=== PATIENT | female | born 1955 | race Caucasian/White ===

== ENCOUNTER → 2017-08-13 09:52 | Outpatient (CLI) | payer MEDICARE, MEDICAID, SELFPAY ==
--- NOTE | 2017-08-13 09:58 | XR_ITS ---
EXAM: XR lumbar spine min 4V HISTORY: ITS.REASON: LOW BACK PAIN ORDERING PHYSICIAN: Gabi Matos PATIENT AGE: 61 years COMPARISON: FINDINGS: Normal alignment. No fracture or dislocation. No lytic or blastic change. There is degenerative disc disease at L5-S1. IMPRESSION: Degenerative disc disease L5-S1
== END ==
PROVIDERS: PCP Nurse Practitioner Family; Visit Provider Nurse Practitioner Family
DX: M54.41 Lumbago with sciatica, right side (principal)
CPT/HCPCS: 72110

== ENCOUNTER → 2017-10-02 12:21 | Outpatient (CLI) | payer MEDICARE, MEDICAID, SELFPAY ==
--- NOTE | 2017-10-02 12:26 | US_ITS ---
US transvaginal HISTORY: Postmenopausal bleeding ITS.REASON: ABNORMAL UTERINE BLEEDING ORDERING PHYSICIAN: Gabi Matos PATIENT AGE: 61 years Comparison: None FINDINGS: UTERUS: The uterus measures 6 x 2.5 x 3.5 cm. Combined endometrial thickness is 3 mm. No uterine mass evident. The right ovary is difficult to determine the margins of with appears enlarged measuring approximately 5 x 2.5 cm with multiple small cysts measuring up to 17 mm. The left ovary is unremarkable at 18 mm. No cul-de-sac fluid evident. IMPRESSION: 1. Enlarged right ovary with small cysts. Consider 4-6 week follow-up to confirm stability in this postmenopausal patient 2. Unremarkable appearing uterus
== END ==
PROVIDERS: Family Provider Family Medicine; PCP Nurse Practitioner Family; Visit Provider Nurse Practitioner Family
DX: N93.9 Abnormal uterine and vaginal bleeding, unspecified (principal)
CPT/HCPCS: 76830

== ENCOUNTER → 2018-03-07 08:16 | Outpatient (CLI) | payer MEDICARE, MEDICAID, SELFPAY ==
--- NOTE | 2018-03-07 08:41 | MM_ITS ---
MM Dig screening mamm BI w/CAD ORDERING PHYSICIAN : Paxton Celis MD PATIENT AGE: 62 years GENDER: Female COMPARISON: January 2017, 2015. December 2014 also October 2013 and October 2009 INDICATION: ITS.REASON: SCREENING. No hormones. No new complaints. Noncontributory family history. TECHNIQUE: Standard CC and MLO images were obtained. R2 CAD reviewed. FINDINGS: Low-density breast bilaterally with generalized replacement. No dominant mass or suspicious mass. No suspicious calcifications or significant concern. There are some scattered small densities in the deep axillary tail of both breasts, right more so than left but these are stable and most likely reflect small intramammary lymph node features. No significant new density either breast. Bilateral follow-up in one year recommended. . Left breast but there is a small less than 5 mm round density labeled X at the deep axillary left breast. Again favor benign features such as a lymph node or possibly a small cyst since it is slightly more evident today. IMPRESSION: Left breast. Small 5 mm vaguely round density deep axillary breast most likely intramammary node, less likely cyst.. Benign mammogram appearance/feature on today's mammogram but is more evident than previous studies.- Therefore Suggest follow-up left mammogram 5-6 months to confirm stable Six-month follow-up adequate. On left to confirm stable . Right breast unchanged follow-up in one year. BI-RADS Category: 3 Probably Benign Finding Short Term Follow-up RECOMMENDED FOLLOW-UP: 6M 6 MONTH FOLLOW-UP (A letter has been sent to the patient regarding results of the study.)
== END ==
PROVIDERS: PCP Family Medicine; Visit Provider Family Medicine
DX: Z12.31 Encounter for screening mammogram for malignant neoplasm of breast (principal)
CPT/HCPCS: 77067

== ENCOUNTER → 2018-08-27 08:47 | Outpatient (POV) | payer MEDICARE, MEDICAID, SELFPAY | PROVIDERS: Visit Provider Dermatology | DX: Z00.00 Encounter for general adult medical examination without abnormal findings (principal) ==

== ENCOUNTER → 2018-09-26 12:58 | Outpatient (CLI) | payer MEDICARE, MEDICAID, SELFPAY ==
--- NOTE | 2018-09-26 13:45 | MM_ITS ---
MM Dig mamm DX unilat LT CAD Ordering Physician: Paxton Celis MD Patient Age: 62 years Female COMPARISON: March 07, 2018 and January 2017 Also December 2014, January 2016 INDICATION: Follow-up small area of nodularity lateral breast right quadrant left breast seen on March 07, 2018 TECHNIQUE: In addition to standard CC and MLO views, spot CC and MLO views were obtained in the upper outer quadrant left breast FINDINGS: . The small area of nodularity previously questioned on previous screening mammogram from March 07, 2018 is less evident and barely appreciable.. Only vague Low-density most likely intramammary node Not of concern and appear stable when compared back to 2016, 2015.. Patient may resume annual schedule. But otherwise minimal residual fibroglandular elements with fatty replacement. No new areas of concern. IMPRESSION: ...... No areas of significant concern. . Small vague low-density less than 5 mm area of density towards upper-outer quadrant left breast is less evident than 2018 mammogram.,, Barely appreciable today. Only vaguely seen and likely present on on old studies from 2016.- Most likely small intramammary node and can be followed . Recommend patient resume annual schedule, with bilateral mammogram /March 2019 suggested. BI-RADS Category: 2 Benign Finding(s) RECOMMENDED FOLLOW-UP: 6M 6 MONTH FOLLOW-UP Bilateral follow-up March 2019--to resume annual schedule A letter has been sent to the patient regarding results of the study.)
== END ==
PROVIDERS: PCP Family Medicine; Visit Provider Family Medicine
DX: R92.8 Other abnormal and inconclusive findings on diagnostic imaging of breast (principal)
CPT/HCPCS: 77065

== ENCOUNTER → 2018-11-19 08:55 | Outpatient (POV) | payer MEDICARE, MEDICAID, SELFPAY | PROVIDERS: Visit Provider Dermatology | DX: Z00.00 Encounter for general adult medical examination without abnormal findings (principal) ==

== ENCOUNTER → 2019-02-13 09:34 | Outpatient (CLI) | payer MEDICARE, MEDICAID, SELFPAY ==
--- NOTE | 2019-02-13 09:44 | XR_ITS ---
PROCEDURE: XR KUB CLINICAL INDICATION: RT SIDED ABD PAIN Right nephrolithiasis COMPARISON: ABDPELWO CT abdomen pelvis wo con from 12/07/2017 FINDINGS: There are multiple small punctate foci of increased density overlying the colon and may be related to ingested material. No obvious renal or ureteral calculi. Mild degenerative changes of the SI joints IMPRESSION: No acute findings. Dictated by: Surinder Valencia MD 02/13/2019 15:42 Electronically signed by Surinder Valencia MD in [facility] 02/13/2019 15:42
[2019-02-13 11:22] LABS: Basophils # 0.1 K/mm3 (0-0.2); Basophils % 1.1 % (0.1-2.0); Eosinophils # 0.1 K/mm3 (0.0-0.4); Eosinophils % 1.2 % (0.1-12.0); Hematocrit 40.3 % (37.0-47.0); Hemoglobin 12.5 g/dL (12.2-16.2); Lymphocytes # 1.7 K/mm3 (0.7-4.5); Lymphocytes % 40.2 % (10-50); Mean Corpuscular HGB Conc 31.1 g/dL (31.8-35.4); Mean Corpuscular Hemoglobin 30.5 pg (27.0-31.2); Mean Platelet Volume 8.6 fl (7.4-10.4); Monocytes # 0.3 K/mm3 (0.1-1.0); Monocytes % 6.5 % (1.7-9.3); Neutrophils # 2.2 K/mm3 (1.8-7.8); Platelet Count 276 K/mm3 (142-424); Red Blood Count 4.11 M/mm3 (4.20-5.40); Red Cell Distribution Width 13.3 % (11.5-17.5); White Blood Count 4.4 K/mm3 (4.8-10.8)
[2019-02-13 13:07] LABS: Alanine Aminotransferase 18 U/L (12-78); Albumin Level 3.8 gm/dL (3.4-5.0); Albumin/Globulin Ratio 1.3 (1.1-1.8); Alkaline Phosphatase 62 U/L (46-116); Amylase 32 U/L (25-115); Anion Gap 11.4 mEq/L (5-15); Aspartate Amino Transferase 15 U/L (15-37); Bilirubin,Total 0.6 mg/dL (0.2-1.0); Blood Urea Nitrogen 16 mg/dL (7-18); Calcium 9.6 mg/dL (8.5-10.1); Carbon Dioxide 31 mmol/L (21.0-32.0); Chloride 104 mmol/L (98-107); Creatinine,Serum 1.09 mg/dL (0.55-1.02); Estimated Glomerular Filt Rate 50 ml/min (>60); GFR (African American) 61 ML/MIN (>60); Gamma Glutamyl Transpeptidase 18 U/L (5-55); Globulin 2.9 gm/dl (1.3-3.2); Glucose 82 mg/dL (74-106); Lipase 94 u/L (73-393); Potassium 4.4 mmoL/L (3.5-5.1); Sodium 142 mmol/L (136-145); Total Protein,Serum 6.7 gm/dL (6.4-8.2)
== END ==
PROVIDERS: PCP Nurse Practitioner Family; Visit Provider Nurse Practitioner Family
DX: R10.9 Unspecified abdominal pain (principal); Z79.899 Other long term (current) drug therapy
CPT/HCPCS: 36415; 74018; 80053; 82150; 82977; 83690; 85025

== ENCOUNTER → 2019-02-21 08:08 | Outpatient (CLI) | payer MEDICARE, MEDICAID, SELFPAY ==
--- NOTE | 2019-02-21 08:11 | CT_ITS ---
PROCEDURE: CT ABDOMEN WO/W CON CLINICAL HISTORY: RT SIDED ABD PAIN Right upper quadrant pain the COMPARISON: ABDPELW/O CT ABD PELVIS W/O CONTRAST from 12/31/[address] abdomen pelvis wo con from 12/07/2017 TECHNIQUE: 75 mL Optiray 350 Pre and post enhanced images are obtained with 5 minutes delayed post enhanced images as well. Axial images obtained with sagittal and coronal reformats. All CT scans at the facility use one or more dose reduction, viz: automated exposure control, ma/kV adjustment per patient size (including targeted exams where dose is matched to indication, i.e. head), or iterative reconstruction technique. FINDINGS: There is a small hiatal hernia. There are postsurgical changes of the stomach. The liver shows a small linear area of decreased attenuation in the left hepatic lobe superiorly. This is probably not significantly changed and could be due to an area of scarring. This area measures approximately 1.8 by 0.9 cm. This appears stable compared to an older exam of 12/31/2014. The liver is otherwise unremarkable. The spleen, adrenal glands, gallbladder, and pancreas have an unremarkable appearance. There is mild haziness of the central mesenteric fat. This is nonspecific and not significantly changed. Knee No renal or ureteral calculi. The previously noted right ureteropelvic junction stone is no longer apparent. The distal ureters are not imaged on this exam as the pelvis was not performed. There is minimal ectasia the renal pelvicaliceal system bilaterally nonspecific. No intestinal obstruction or free air. No evidence of aortic aneurysm. There are mild degenerative changes in the lumbar spine. There is a small umbilical hernia containing fat. IMPRESSION: 1. Previously noted right ureteropelvic junction stone no longer apparent. 2. Hiatal hernia with postsurgical changes of the stomach as before. Dictated by: Surinder Valencia MD 02/21/2019 18:22 Electronically signed by Surinder Valencia MD in [facility] 02/22/2019 08:17
== END ==
PROVIDERS: PCP Nurse Practitioner Family; Visit Provider Nurse Practitioner Family
DX: R10.31 Right lower quadrant pain (principal)
CPT/HCPCS: 74170; Q9967

== ENCOUNTER → 2019-05-27 13:08 | Outpatient (CLI) | payer MEDICARE, MEDICAID, SELFPAY ==
--- NOTE | 2019-05-27 14:13 | MM_ITS ---
PROCEDURE: MM DIG SCREENING MAMM BI W/CAD CLINICAL INDICATION: SCREENING COMPARISON: D[facility]B DIG MAMM-SCREEN MACY W/CAD from 01/25/2017 [facility] MM Dig screening mamm BI w/CAD from 03/07/2018 DIG MAMM-DX UNI-LT from 09/26/2018 TECHNIQUE: Standard CC and MLO images and 3D Tomosynthesis was obtained. R2 CAD reviewed. FINDINGS: The breasts are of average density. Benign appearing nodules consistent with lymph nodes project over both pectoral muscles. There are 2 separate circumscribed benign appearing nodules in the right breast which are unchanged and felt to be benign one in the upper outer quadrant and one the inferior lateral quadrant. A new circumscribed nodule 3.7 x 2.5 millimeters appears to be present in the medial retroareolar right breast. This is probably benign. Six-month follow-up exam is recommended. There are no spiculated masses or suspicious clustered microcalcifications to suggest malignancy. IMPRESSION: BI-RAD Category: Right breast BI-RADS category 3 probably benign findings. Left breast BI-RADS category 2 benign. FOLLOW-UP: Six-month follow-up right breast and 1 year follow-up left breast. (A letter has been sent to the patient regarding results of the study.) Dictated by: Fracisco Whyte 05/27/2019 19:10 Electronically signed by Fracisco Whyte in [facility] 05/27/2019 19:10
== END ==
PROVIDERS: PCP Nurse Practitioner Family; Visit Provider Family Medicine
DX: Z12.31 Encounter for screening mammogram for malignant neoplasm of breast (principal)
CPT/HCPCS: 77063; 77067

== ENCOUNTER → 2019-08-21 10:07 | Outpatient (CLI) | payer MEDICARE, MEDICAID, SELFPAY ==
--- NOTE | 2019-08-21 10:15 | XR_ITS ---
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 The joint spaces are well-preserved. No significant degenerative/arthritic changes. No erosive changes evident. Other findings:No fracture or dislocation IMPRESSION: Hallux valgus with bunion formation Dictated by: Surinder Valencia MD 08/21/2019 11:30 Electronically signed by Surinder Valencia MD in [facility] 08/21/2019 11:30
== END ==
PROVIDERS: PCP Family Medicine; Visit Provider Nurse Practitioner Family
DX: M79.671 Pain in right foot (principal)
CPT/HCPCS: 73630

== ENCOUNTER → 2019-11-11 10:22 | Outpatient (CLI) | payer MEDICARE, MEDICAID, SELFPAY ==
--- NOTE | 2019-11-11 10:25 | MM_ITS ---
PROCEDURE: MM DIG MAMM DX UNILAT RT CAD Digital Breast Tomosynthesis Included CLINICAL INDICATION: 6 MTH F/U RT BREAST DENSITY COMPARISON: MG [facility]MSB DIG MAMM-SCREEN MACY from 12/31/2014 MG [facility] MM Dig screening mamm BI w/CAD from 03/07/2018 MG DIG MAMM-DX UNI-LT from 09/26/2018 MG MM DIG SCREENING MAMM BI W/CAD from 05/27/2019 TECHNIQUE: Standard CC and MLO images and 3D Tomosynthesis was obtained. R2 CAD reviewed. FINDINGS: There is average fibroglandular tissue. There is some nodularity involving the medial aspect of the right breast probably not significantly changed given difference in technique. The previously described 3.7 x 2.5 cm nodular opacity in the medial right breast is not as well demonstrated on today's exam. No malignant appearing mass or malignant-appearing microcalcification. Recommend resume screening mammogram May 2020 IMPRESSION: BI-RAD Category: 3 Probably Benign Finding Short Term Follow-up FOLLOW-UP: 6M 6Month Follow-up (A letter has been sent to the patient regarding results of the study.) Dictated b Surinder Valencia MD 11/14/2019 10:46 Surinder Valencia MD in [place] 11/14/2019 10:46
== END ==
PROVIDERS: PCP Family Medicine; Visit Provider Family Medicine
DX: R92.8 Other abnormal and inconclusive findings on diagnostic imaging of breast (principal); Z09 Encounter for follow-up examination after completed treatment for conditions other than malignant neoplasm
CPT/HCPCS: 77061; 77065; G0279

== ENCOUNTER → 2020-05-14 09:28 | Outpatient (CLI) | payer MEDICARE, MEDICAID, SELFPAY ==
--- NOTE | 2020-05-14 09:32 | MM_ITS ---
PROCEDURE: MM DIG SCREENING MAMM BI W/CAD Digital Breast Tomosynthesis Included CLINICAL INDICATION: SCREENING Personal or family history of breast cancer. COMPARISON: MG DIG MAMM-DX UNI-LT from 09/26/2018 MG MM DIG SCREENING MAMM BI W/CAD from 05/27/2019 MG MM DIG MAMM DX UNILAT RT CAD from 11/11/2019 TECHNIQUE: Standard CC and MLO images and 3D Tomosynthesis was obtained. R2 CAD reviewed. FINDINGS: Mild scattered fibroglandular densities are seen in both breast on a background of primarily fatty breast parenchyma. There is a stable small benign-appearing nodular density upper-outer quadrant right breast. There are stable small asymmetric glandular elements inner quadrant right breast. There is a benign-appearing calcification right breast. There is no suspicious lesion and no suspicious microcalcifications. IMPRESSION: Fibrofatty parenchyma with no suspicious lesions seen BI-RAD Category: 2 Benign Finding(s) FOLLOW-UP: 1YR 1 Year Follow-up (A letter has been sent to the patient regarding results of the study.) Dictated by: Dr. Paulo Lamb MD 05/18/2020 12:26 Dr. Paulo Lamb MD in [place] 05/18/2020 12:26
== END ==
PROVIDERS: PCP Family Medicine; Visit Provider Family Medicine
DX: Z12.31 Encounter for screening mammogram for malignant neoplasm of breast (principal)
CPT/HCPCS: 77063; 77067

== ENCOUNTER → 2020-12-20 11:53 | Outpatient (CLI) | payer MEDICARE, SELFPAY ==
--- NOTE | 2020-12-20 11:58 | XR_ITS ---
PROCEDURE: XR LUMBAR SPINE MIN 4V CLINICAL INDICATION: ACUTE LOW BACK PAIN, UNSPECIFIED BACK PAIN LATERALITY COMPARISON: CR [id number] XR lumbar spine min 4V from 08/13/2017 FINDINGS: Minimal lumbar curvature convex right. There is mild multilevel degenerative disc disease from L1-S1. Small anterior osteophytes are present. The degenerative disc disease is most pronounced at L4-5 and L5-S1. There is 3 mm anterolisthesis of L3 on L4. Mild facet arthritic changes L3 L4-5 and S1. Mild degenerative changes of the SI joints. Other findings:None. IMPRESSION: Degenerative changes, no acute finding Dictated by: Surinder Valencia MD 12/20/2020 13:03 Surinder Valencia MD in [place] 12/20/2020 13:03
== END ==
PROVIDERS: PCP Family Medicine; Visit Provider Nurse Practitioner Family
DX: M54.5 Low back pain (principal)
CPT/HCPCS: 72110

== ENCOUNTER → 2021-06-08 09:54 | Outpatient (CLI) | payer MEDICARE, SELFPAY ==
--- NOTE | 2021-06-08 09:57 | MM_ITS ---
PROCEDURE INFORMATION: Exam: MG Bilateral Screening 3D Mammography Exam date and time: 06/08/2021 9:57 AM Age: 65 years old Clinical indication: Screening mammogram TECHNIQUE: Imaging protocol: Bilateral Screening tomosynthesis and 2D mammography including computer-aided detection (CAD) when performed. COMPARISON: No relevant prior studies available. FINDINGS: MAMMOGRAPHY: Breast composition: There are scattered areas of fibroglandular density. Mass: Stable benign-appearing subcentimeter nodules are present in the bilateral breasts. No new or morphologically suspicious nodule has developed to suggest malignancy. Architectural distortion: No new or suspicious architectural distortion. Calcifications: No new or suspicious calcifications are present Asymmetric density: No new or suspicious asymmetric density is present Skin thickening: None. Axillary adenopathy: None. IMPRESSION: No mammographic evidence of malignancy. Recommend annual screening mammography unless otherwise clinically indicated. ASSESSMENT: BI-RADS category 2: Benign
== END ==
PROVIDERS: PCP Family Medicine; Visit Provider Family Medicine
DX: Z12.31 Encounter for screening mammogram for malignant neoplasm of breast (principal)
CPT/HCPCS: 77063; 77067

== ENCOUNTER → 2022-06-01 12:17 | Outpatient (CLI) | payer MEDICARE, SELFPAY | PROVIDERS: PCP Family Medicine; Visit Provider Nurse Practitioner Family | DX: I49.8 Other specified cardiac arrhythmias (principal) | CPT/HCPCS: 93225; 93226 ==

== ENCOUNTER → 2022-06-14 08:26 | Outpatient (CLI) | payer MEDICARE, SELFPAY ==
--- NOTE | 2022-06-14 08:32 | MM_ITS ---
PROCEDURE INFORMATION: Exam: MG Bilateral Screening 3D Mammography Exam date and time: 06/14/2022 8:45 AM Age: 66 years old Clinical indication: Screening examination TECHNIQUE: Imaging protocol: Bilateral Screening tomosynthesis and 2D mammography including computer-aided detection (CAD) when performed. COMPARISON: 1. MG MM DIG SCREENING MAMM BI W/CAD 06/08/2021 10:25 AM 2. MG MM DIG SCREENING MAMM BI W/CAD 05/14/2020 10:04 AM FINDINGS: MAMMOGRAPHY: Breast composition: There are scattered areas of fibroglandular density. Mass: None. Architectural distortion: None. Calcifications: No suspicious calcifications. Asymmetric density: None. Skin thickening: None. Axillary adenopathy: None. IMPRESSION: No mammographic evidence of malignancy. Annual screening is recommended unless otherwise clinically indicated. ASSESSMENT: BI-RADS Category 1: Negative
--- NOTE | 2022-06-14 08:34 | XR_ITS ---
FINAL REPORT TECHNIQUE: Bone densitometry calculations of the lumbar spine and right hip were obtained. CLINICAL HISTORY: screening FINDINGS: DEXA BONE DENSITY AXIAL SKELETON Using L1-4, the bone mineral density of the spine is 1.088 g/cm2, corresponding to T-score of 0.4. Using the right hip, the bone mineral density of the femoral neck is 0.749 g/cm2, corresponding to a T-score of -0.9. NOTE: T-score: Standard deviation compared with peak bone mass of young adult mean. *Following the recommendations of the International Society of Bone densitometry, classification of hip BMD is based on the lower of two T-scores; total hip or femoral neck. IMPRESSION: Normal bone mineral density of the lumbar spine and right hip. Reviewed, Interpreted and Dictated by Darius Villar III, MD Transcribed by Tanya Wiley Authenticated and [facility]
== END ==
PROVIDERS: PCP Nurse Practitioner Family; Visit Provider Nurse Practitioner Family
DX: Z12.31 Encounter for screening mammogram for malignant neoplasm of breast (principal); Z78.0 Asymptomatic menopausal state; M85.80 Other specified disorders of bone density and structure, unspecified site
CPT/HCPCS: 77063; 77067; 77080

== ENCOUNTER → 2023-01-03 07:16 | Outpatient (CLI) | payer MEDICARE, SELFPAY ==
--- NOTE | 2023-01-03 07:20 | US_ITS ---
FINAL REPORT TECHNIQUE: Sonographic images of the abdomen were obtained in all four quadrants. CLINICAL HISTORY: RUQ PAIN FINDINGS: LIVER: Homogeneous. No focal hepatic lesion or intrahepatic biliary dilatation. GALLBLADDER: No gallstones. 7 mm echogenic structure along the nondependent wall most consistent with a polyp. No pericholecystic fluid collection or gallbladder wall thickening. The common duct measures 4 mm. This is within normal limits for age. PANCREAS: Unremarkable. RIGHT KIDNEY: 9.2 cm. No hydronephrosis, mass or stone. LEFT KIDNEY: 10.7 cm. No hydronephrosis, mass or stone. SPLEEN: 9.5 cm. No focal splenic lesion. AORTA/IVC: No abdominal aortic aneurysm. Visualized IVC within normal limits. OTHER: No ascites. IMPRESSION: Gallbladder polyp. Given size of greater than 5 mm recommend 6-12-month follow-up. Reviewed, Interpreted and Dictated by Chrissy Camilo MD Transcribed by Vijay Payne Authenticated and [facility]
== END ==
LOC: RAD 07:16
PROVIDERS: PCP Nurse Practitioner Family; Visit Provider Nurse Practitioner Family
DX: R10.11 Right upper quadrant pain (principal); Z98.84 Bariatric surgery status
CPT/HCPCS: 76700

== ENCOUNTER 2023-07-30 09:04 | Outpatient (CLI) | payer MEDICARE, SELFPAY ==
--- NOTE | 2023-07-30 09:10 | MM_ITS ---
PROCEDURE INFORMATION: Exam: MG Bilateral Screening 3D Mammography Exam date and time: 07/30/2023 9:01 AM Age: 67 years old Clinical indication: Screening examination TECHNIQUE: Imaging protocol: Bilateral Screening tomosynthesis and 2D mammography including computer-aided detection (CAD) when performed. COMPARISON: 1. MG MM DIG SCREENING MAMM BI W/CAD 06/14/2022 8:45 AM 2. MG MM DIG SCREENING MAMM BI W/CAD 06/08/2021 10:25 AM FINDINGS: MAMMOGRAPHY: Breast composition: The breasts are almost entirely fatty. Mass: None. Architectural distortion: None. Calcifications: No suspicious calcifications. Asymmetric density: None. Skin thickening: None. Axillary adenopathy: None. IMPRESSION: No mammographic evidence of malignancy. Annual screening is recommended unless otherwise clinically indicated. ASSESSMENT: BI-RADS Category 1: Negative
--- NOTE | 2023-07-30 09:10 | XR_ITS ---
FINAL REPORT CLINICAL HISTORY: POST MENOPAUSAL COMPARISON: 06/14/2022 FINDINGS: Using L1-4, the bone mineral density of the spine is 1.139 g/cm2, corresponding to T-score of 0.8. Using the left hip, the bone mineral density of the femoral neck is 0.817 g/cm2, corresponding to a T-score of -0.3. Using the right hip, the bone mineral density of the femoral neck is 0.756 g/cm?, corresponding to a T-score of -0.8. NOTE: T-score: Standard deviation compared with peak bone mass of young adult mean. *Following the recommendations of the International Society of Bone densitometry, classification of hip BMD is based on the lower of two T-scores; total hip or femoral neck. IMPRESSION: Normal bone mineral density of the hips bilaterally and the lumbar spine, stable since the prior DEXA exam of 06/14/2022. Reviewed, Interpreted and Dictated by Pietro Dumont MD Transcribed by Shadia Mendoza Authenticated and [facility]
== END 2023-07-30 23:59 | disposition home or self-care (01) ==
LOC: RAD 09:04
PROVIDERS: PCP Nurse Practitioner; Visit Provider Nurse Practitioner
DX: Z12.31 Encounter for screening mammogram for malignant neoplasm of breast; Z13.820 Encounter for screening for osteoporosis; Z78.0 Asymptomatic menopausal state
CPT/HCPCS: 77063; 77067; 77080

== ENCOUNTER 2023-08-09 15:11 | Outpatient (CLI) | payer MEDICARE, SELFPAY ==
--- OUTSIDE RECORDS SUMMARY | 2023-08-09 15:14 | XMS_ITS ---
Author Name Beka Belcher Address [address] [place] [id number] Organization Unknown Address [address] [place] [id number] ALLERGIES AND ADVERSE REACTIONS No information ASSESSMENT No information CHIEF COMPLAINT No information MEDICATIONS No information OBJECTIVE DATA No information PHYSICAL EXAMINATION No information TREATMENT PLAN Planned Care Start Date Provider Encounter for Check-up [id number] AC Celis PROBLEMS No information RESULTS No information REVIEW OF SYSTEMS No information SUBJECTIVE DATA No information VITAL SIGNS No information
--- NOTE | 2023-08-09 15:17 | XR_ITS ---
FINAL REPORT CLINICAL HISTORY: RT FOOT PAIN FINDINGS: Three views show no evidence of acute displaced fracture or dislocation of the visualized bony architecture. There is severe hallux valgus deformity. The joint spaces appear normal. IMPRESSION: Severe hallux valgus deformity. Reviewed, Interpreted and Dictated by Krishna Gates MD Transcribed by Eugenia Westbrook Authenticated and [facility][1]
== END 2023-08-09 23:59 | disposition home or self-care (01) ==
LOC: RAD 15:13
PROVIDERS: PCP Family Medicine; Visit Provider Nurse Practitioner
DX: M79.671 Pain in right foot (principal)
CPT/HCPCS: 73630

== ENCOUNTER 2023-10-31 15:36 | Outpatient (CLI) | payer MEDICARE, SELFPAY ==
--- NOTE | 2023-10-31 15:41 | XR_ITS ---
FINAL REPORT CLINICAL HISTORY: COUGH, CHRONIC BRONCHITIS FINDINGS: No acute pulmonary density is evident. There is no evidence of effusion or other pleural disease. The mediastinum has a normal appearance. The cardiac silhouette is unremarkable. IMPRESSION: Unremarkable chest exam. Authenticated and [facility]
== END 2023-10-31 23:59 | disposition home or self-care (01) ==
LOC: RAD 15:37
PROVIDERS: PCP Nurse Practitioner; Visit Provider Nurse Practitioner
DX: R05.9 Cough, unspecified (principal); J42 Unspecified chronic bronchitis
CPT/HCPCS: 71046

== ENCOUNTER 2023-12-21 11:04 | Outpatient (CLI) | payer MEDICARE, SELFPAY ==
--- NOTE | 2023-12-21 11:12 | XR_ITS ---
FINAL REPORT CLINICAL HISTORY: UPPER ABDOMINAL PAIN COMPARISON: 10/31/2023 FINDINGS: Two views of the chest were obtained. The heart size and pulmonary vascularity are within normal limits. The mediastinum is normal. No acute pulmonary abnormality is identified. There is no pneumothorax. The bony thorax is intact. IMPRESSION: No active cardiopulmonary disease. Reviewed, Interpreted and Dictated by Darius Villar III, MD Transcribed by Latanya Crespo Authenticated and [facility]
== END 2023-12-21 23:59 | disposition home or self-care (01) ==
LOC: RAD 11:06
PROVIDERS: PCP Nurse Practitioner; Visit Provider Nurse Practitioner
DX: R10.10 Upper abdominal pain, unspecified (principal)
CPT/HCPCS: 71046

== ENCOUNTER 2024-07-31 09:38 | Outpatient (CLI) | payer MEDICARE, SELFPAY ==
--- NOTE | 2024-07-31 09:40 | MM_ITS ---
PROCEDURE INFORMATION: Exam: MG Bilateral Screening 3D Mammography Exam date and time: 07/31/2024 10:22 AM Age: 68 years old Clinical indication: Screening examination TECHNIQUE: Imaging protocol: Bilateral Screening tomosynthesis and 2D mammography including computer-aided detection (CAD) when performed. COMPARISON: 1. MG MM DIG SCREENING MAMM BI W/CAD 07/30/2023 9:01 AM 2. MG MM DIG SCREENING MAMM BI W/CAD 06/14/2022 8:45 AM FINDINGS: MAMMOGRAPHY: Breast composition: The breasts are almost entirely fatty. Mass: No suspicious masses. Architectural distortion: None. Calcifications: No suspicious calcifications. Asymmetric density: None. Skin thickening: None. Axillary adenopathy: None. IMPRESSION: No mammographic evidence of malignancy. Annual screening is recommended unless otherwise clinically indicated. ASSESSMENT: BI-RADS Category 1: Negative.
--- OUTSIDE RECORDS SUMMARY | 2024-07-31 09:40 | XMS_ITS | Data Portability ---
Author Organization MILI LAUREL Garcia [facility] Address [address] [place] [address] Assessment No assessment recorded. Plan of Treatment Reminders Order Date Submit Date Provider Last Modified By Organization Details Last Modified Time Details Appointments None recorded. Lab urinalysis , dipstick, auto 2018 019 [email or web address] [facility] [address], [address], [place], [address], 9 16:27:17 urinalysis , dipstick, auto 2017 018 [email or web address] [facility], [address] [facility], [place], [address], 8 10:20:46 kidney stone analysis 2017 018 [facility], [address] [place] [address], [address], 8 00:46:17 Referral None recorded. Procedures None recorded. Surgeries None recorded. Imaging XR, abdomen, 1 view 2017 018 [facility], [address] [facility], [place], [address], 8 16:16:49 Medication Orders None recorded. Patient TargetsNo targets recorded. Patient Instructions Encounter Date Encounter Id Patient Instructions Last Modified By Organization Details Last Modified Time 07/18/2018 [id number] Natural history of stone disease discussed with her. I then discussed general preventive measures, including but not limited to fluid intake, salt restriction and daily dairy intake [email or web address] Not available 07/21/2018 16:26:52 Reason for Referral None Reported. Results Created Date Observation Date Name Description Value Unit Range Abnormal Flag Note LastModifiedBy Organization Detail LastModifiedTime 07/19/19 19 07/18/2018 urina lysis , dipst ick, auto Unknown Analyte Yellow Not Available [facility] [address] [place], [address], 07/18/2018 13:13:41 07/19/19 19 07/18/2018 urina lysis , dipst ick, auto Unknown Analyte Clear Not Available [facility] [address], [address], 07/18/2018 13:13:41 07/19/19 19 07/18/2018 urina lysis , dipst ick, auto Unknown Analyte 1.020 Not Available [facility] [address] [place], [address], 07/18/2018 13:13:41 07/19/19 19 07/18/2018 urina lysis , dipst ick, auto Unknown Analyte 5.0 Not Available [facility] [address] [place], [address], 07/18/2018 13:13:41 07/19/1907/18/2018 urina lysis , dipst ick, auto Unknown Analyte 25 Gennaro/ul Trace Not Available [facility] [address] [place], [address], 07/18/2018 13:13:41 07/19/19 19 07/18/2018 urina lysis , dipst ick, auto Unknown Analyte Negati ve Not Available [facility] [address] [place], [address], 07/18/2018 13:13:41 07/19/19 19 07/18/2018 urina lysis , dipst ick, auto Unknown Analyte Negtiv e Not Available [facility] [address] [facility], [place], [address], 07/18/2018 13:13:41 07/19/19 19 07/18/2018 urina lysis , dipst ick, auto Unknown Analyte Normal Not Available [facility] [address] [facility], [place], [address], 07/18/2018 13:13:41 07/19/19 19 07/18/2018 urina lysis , dipst ick, auto Unknown Analyte Negati ve Not Available [facility] [address] [facility], [place], [address], 07/18/2018 13:13:41 07/19/19 19 07/18/2018 urina lysis , dipst ick, auto Unknown Analyte 1 mg/dl Not Available [facility] [address] [facility], [place], [address], 07/18/2018 13:13:41 07/19/19 19 07/18/2018 urina lysis , dipst ick, auto Unknown Analyte 1 mg/dl (+) Not Available [facility] [address] [facility], [place], [address], 07/18/2018 13:13:41 07/19/19 19 07/18/2018 urina lysis , dipst ick, auto Unknown Analyte Negati ve Not Available [facility] [address] [place], [address], 07/18/2018 13:13:41 07/19/19 19 07/18/2018 urina lysis , dipst ick, auto Unknown Analyte Clean Catch Not Available [facility] [address] [place], [address], 07/18/2018 13:13:41 07/19/19 19 07/18/2018 urina lysis , dipst ick, auto Unknown Analyte Automa marissa Not Available [facility] [address] [facility], [place], [address], 07/18/2018 13:13:41 01/19/20 18 01/18/2018 urina lysis , dipst ick, auto Unknown Analyte Yellow Not Available [facility] [address] [facility], [place], [address], 01/18/2018 09:45:19 01/19/20 18 01/18/2018 urina lysis , dipst ick, auto Unknown Analyte Clear Not Available [facility] [address] [facility], [place], [address], 01/18/2018 09:45:19 01/19/20 18 01/18/2018 urina lysis , dipst ick, auto Unknown Analyte 1.015 Not Available [facility] [address] [facility], [place], [address], 01/18/2018 09:45:19 01/19/20 18 01/18/2018 urina lysis , dipst ick, auto Unknown Analyte 8.0 Not Available [facility] [address] [facility], [place], [address], 01/18/2018 09:45:19 01/19/20 18 01/18/2018 urina lysis , dipst ick, auto Unknown Analyte Negati ve Not Available [facility] [address] [facility], [place], [address], 01/18/2018 09:45:19 01/19/20 18 01/18/2018 urina lysis , dipst ick, auto Unknown Analyte Negati ve Not Available [facility] [address] [facility], [place], [address], 01/18/2018 09:45:19 01/19/20 18 01/18/2018 urina lysis , dipst ick, auto Unknown Analyte Negtiv e Not Available [facility] [address] [facility], [place], [address], 01/18/2018 09:45:19 01/19/20 18 01/18/2018 urina lysis , dipst ick, auto Unknown Analyte Normal Not Available [facility] [address] [facility], [place], [address], 01/18/2018 09:45:19 01/19/20 18 01/18/2018 urina lysis , dipst ick, auto Unknown Analyte Negati ve Not Available [facility] [address] [facility], [place], [address], 01/18/2018 09:45:19 01/19/20 18 01/18/2018 urina lysis , dipst ick, auto Unknown Analyte Normal Not Available [facility] [address] [facility], [place], [address], 01/18/2018 09:45:19 01/19/20 18 01/18/2018 urina lysis , dipst ick, auto Unknown Analyte Negati ve Not Available [facility] [address] [facility], [place], [address], 01/18/2018 09:45:19 01/19/20 18 01/18/2018 urina lysis , dipst ick, auto Unknown Analyte Negati ve Not Available [facility] [address] [facility], [place], [address], 01/18/2018 09:45:19 01/19/20 18 01/18/2018 urina lysis , dipst ick, auto Unknown Analyte Clean Catch Not Available [facility] [address] [facility], [place], [address], 01/18/2018 09:45:19 01/19/20 18 01/18/2018 urina lysis , dipst ick, auto Unknown Analyte Automa marissa Not Available [facility] [address] [facility], [place], [address], 01/18/2018 09:45:19 01/19/20 18 01/22/2018 kidne y stone chanel sis nidus Not observ ed normal Not Available [facility] [address] [place] [address], [address], 01/22/2018 00:46:17 01/19/20 18 01/22/2018 kidne y stone chanel sis composition SEE BELOW normal Carbo starla Apati te (Dahl lite) 100% Not Available [facility] [address] [place], [address], 01/22/2018 00:46:17 01/19/20 18 01/22/2018 kidne y stone chanel sis weight 0.0210 g normal This test was devel oped and its chanel tical perfo rmanc e tricia cteri stics have been deter mined by [facility] tut Inderjit chow. It has not been clear ed or appro tracey by the [place] Food and Drug Admin istra tion. This assay has been valid ated pursu ant to the CLIA regul ation s and is used for clini ambika purpo ses. TEST PERFO RMED AT: [facility] INDERJIT JAMESON [address] [place] [address] Vignesh MALAVE,PHD Not Available [facility] [address] [place], [address], 01/22/2018 00:46:17 12/20/19 18 12/19/2017 XR, abdom en, 1 view No observ ation record ed. [email or web address] [facility] [address], [place], [address], 12/25/2017 07:51:34 01/19/20 18 01/18/2018 XR, abdom en [facility] [address] [place] [address] Patien t Name: MEGAN barnes : 952 Patien t 7 Orderi ng Provid er: DEBORAH ROSS EXAM DATE: 2017 EXAM: XR CU ABDOME N [facility] INFORM ATION: Histor y of urinar y tract stones . IMAGES PROVID ED: KUB AP radiog raphic images of the abdome n. COMPAR FARIDA: None. FINDIN GS AND IMPRES JET: No stones or calcif icatio ns are seen in the expect ed locati on of the kidney s, ureter s or urinar y bladde r. No other signif icant abnorm ality. Interp reted By: Angelina Pressley MD Electr onical ly Signed By: Angelina Pressley MD on 2017 4:11 PM [email or web address] [facility] [employer] [address] [place], [address], 01/20/2018 10:53:27 Result Notes None recorded. Problems No Known Problems Procedures Surgical History Date Name Laterality Status Provider Name and Address Organization Details Recorded Time 12/20/19 18 extracorporeal shockwave lithotripsy completed VIPUL ROSS MD [address] [place], [address], [facility] 01/20/2018 10:15:43 [facility] 09:37:06 Unlisted px hands/fingers completed Gabby [facility] 01/18/2018 09:37:19 Tonsillectomy completed Gabby [facility] 01/18/2018 09:37:28 Unlisted px foot/toes completed [facility] 01/18/2018 09:37:36 Imaging Results Imaging Date Name Status LastModified by Organiz ation Details LastModified Time 12/19/2017 XR, abdomen, 1 view completed [email or web address] [facility] [address] , [place], [address], 12/25/2017 07:51:34 01/18/2018 XR, abdomen completed [email or web address] [facility] [employer] [address], [place], [address], 01/20/2018 10:53:27 Procedure Notes None recorded. Medical Equipment None Reported. Allergies No known drug allergies Medications Name Sig Start Date Stop Date Status Note LastModified by Organization Details LastModified Time tizanidine 4 mg tablet 01/18 completed Not Available Not Available Not Available hydrocodone 5 mg-acetaminophen 325 mg tablet 01/18 completed Not Available Not Available Not Available alendronate 70 mg tablet active Not Available Not Available No t Available ciprofloxacin 500 mg tablet 01/18 completed Not Available Not Available Not Available ciclopirox 8 % topical solution 01/18 completed Not Available Not Available Not Available tamsulosin 0.4 mg capsule active Not Available Not Available N ot Available baclofen 10 mg tablet 01/18 completed Not Available Not Available Not Available cephalexin 500 mg capsule active Not Available Not Available N ot Available oseltamivir 75 mg capsule 01/18 completed Not Available Not Available Not Available diclofenac potassium 50 mg tablet 01/18 completed Not Available Not Available Not Available mupirocin 2 % topical ointment active Not Available Not Avail able Not Available diclofenac sodium 50 mg tablet,delayed release 01/18 completed Not Available Not Available Not Available ondansetron 4 mg disintegrating tablet 01/18 completed Not Available Not Available Not Available ciclopirox 0.77 % topical gel 01/18 completed Not Available Not Available Not Available nitrofurantoin monohydrate/macr ocrystals 100 mg capsule 01/18 completed Not Available Not Available Not Available Havrix (PF) 1,440 BRIANNA unit/mL intramuscular syringe 01/18 completed Not Available Not Available Not Available Vaqta (PF) 50 unit/mL intramuscular syringe active Not Available Not Available Not Available Shingrix (PF) 50 mcg/0.5 mL intramuscular suspension, kit 01/18 completed Not Available Not Available Not Available Vitals Date Recorded Body height Body mass index (BMI) Body weight Provider Name and Address Organization Details Last Updated DateTime 01/18/2018 167.64 cm 32 kg/m2 13016.29 g Gabby Jacome [facility] 01/18/2018 09:33:39 Date Recorded Body height Body mass index (BMI) Body weight Provider Name and Address Organization Details Last Updated DateTime 07/18/2018 167.64 cm 32 kg/m2 34737.29 lexi [place] [facility] 07/18/2018 13:06:24 Social History Question Answer Notes LastModified by Organizat ion Details LastModified Time Tobacco Smoking Status Never Smoker Gabby Jacome [facility] 01/18/2018 09:36:01 What Is Your Level Of Alcohol Consumption? None Information not available 01/18/2018 What Is Your Occupation? Retired Information not available 01/18/2018 [facility] In[facility] n not available 01/18/2018 What Was The Date Of Your Most Recent Tobacco Screening? 07/18/2018 Information n ot available 05/27/2019 Sex: Unknown Functional Status None recorded. Mental Status None recorded. Family History Relationship Description Onset Age of this Age Resolved Age Notes LastModified by Organization Details LastModified Time Father Diabetes mellitus [email or web address] Not available 2017 09:35:54 Medical History Condition Response Ulcers Y False Teeth Y Kidney Stones Y Gynecological HistoryNo gynecological history recorded. Obstetrics History GPAL:G 0 P 0 0 0 0 Past Encounters Encounter ID Performer Location Encounter Start Date Encounter Closed Date Diagnosis/Indication Diagnosis SNOMED-CT Code Diagnosis ICD10 Code Diagnosis Note [id number] VIPUL ROSS [facility] [address] [place] [address] 01/18/2018 09:04:53 01/21/2018 08:55:09 Kidney stone 02799838 N20.0 now surgically resolved [id number] VIPUL ROSS [facility] [address] [facility] [place] [address] 07/18/2018 11:35:56 07/22/2018 08:37:07 Urolithiasis 83515932 N20.9 Health Concerns Section Related Observation LastModified by Organization Detai ls LastModified Time None Recorded Concern Status LastModified by Organization Details LastModified Time None Recorded Advance Directives Directive None Recorded Payers Encounter Date Sequence Insurance Name Policy Number Policy Garcia Covered Member ID Garcia Member ID Guarantor Name 01/18/2018 1 [place] Megan Auguste [id number] Megan Auguste 07/18/2018 1 [place] Megan Auguste [id number] Megan Auguste Notes Date Note Type Note Provider Name and Address Organization Details Recorded Time 01/18/2018 text/html Megan is a 62 y o female returns for post-op visit s/p right ESWL (10 mm x8 mm) and right stent removal. She is doing very well. She denies any dysuria or gross hematuria. She has passed fragments and sand like material , and brings them in today. She has no complaitns or concerns today. VIPUL ROSS MD [facility] [place], [address], [facility] 01/20/2018 10:16:26 07/18/2018 text/html Megan is a 62 y o female returns for a 6 mo f/u due to kidney stones s/p right ESWL (10 mm x8 mm). She denies any current urinary complaints and is doing well. She has not had any stone passage since last visit. Her stone analysis was 100% carbonate apatite. This was her first stone ever. MD [address] [place] [place], [address], [facility] 07/21/2018 16:27:20 OBGyn Episode No OBEpisode recorded.
--- OUTSIDE RECORDS SUMMARY | 2024-07-31 09:40 | XMS_ITS ---
Author Organization Unknown Vital Signs BpStanding BpSitting BpSupine Date Temperature HeartRate Weight Hei ght Spo2 Respiration Bmi HeadCircumference FieldCount TimeRecorded NeckCircumferen ce WaistCircumference Pulse 110/62 02/24 00:00 :00 98.3 68 208,0 5,6 99 33.5 7 7 07/13/2024 09:00:00 132/62 12/20 00:00 :00 98.6 78 210,0 5,6 98 33.8 9 7 07/13/2024 10:30:00 118/62 11/29 00:00 :00 98.6 68 216,0 5,6 98 34.8 6 7 07/13/2024 08:30:00 11/19 00:00 :00 98.0 216,12. 80 5,6 34.9 9 4 07/13/2024 08:30:00 122/62 10/30 00:00 :00 98.6 209,0 5,6 33.7 3 5 07/13/2024 15:30:00 102/68 10/25 00:00 :00 98.6 218,0 5,6 35.1 8 5 07/13/2024 14:45:00 12210/11 00:00 :00 98.6 68 221,0 5,6 98 35.6 7 7 07/13/2024 10:45:00 11808/08 00:00 :00 98.1 220,0 5,6 35.5 1 5 07/13/2024 15:00:00
== END 2024-07-31 23:59 | disposition home or self-care (01) ==
LOC: RAD 09:39
PROVIDERS: PCP Nurse Practitioner; Visit Provider Nurse Practitioner
DX: Z12.31 Encounter for screening mammogram for malignant neoplasm of breast (principal)
CPT/HCPCS: 77063; 77067